=== PATIENT | male | born 1980 | race Caucasian/White ===

== ENCOUNTER 2024-10-27 13:31 | Emergency (ER) | payer MEDICARE, MEDICAID ==
[~2024-10-27] VITALS: Ht 188 cm; Wt 85.9 kg
[2024-10-27] MEDS ORDERED: SULF1TAB49 PO (14:23)
[2024-10-27] MEDS ORDERED: IBUP-862 PO (14:23)
--- NOTE | 2024-10-27 14:23 | Physician Documentation ---
History of Present Illness ~ Chief Complaint: Wound Stated Complaint: POSS MRSA Time Seen by MD: 14:21 HPI 44-year-old male with various ulcers and wounds to his lower extremities right hip left foot he is concerned for MRSA and infection no fevers chest pain or shortness of breath Medication Reconciliation Allergies: Coded Allergies: No Known Allergies (Unverified , 10/27/24) Scheduled Ibuprofen (Ibu), 1 TAB PO Q6H Sulfamethoxazole/Trimethoprim (Bactrim Ds Tablet), 1 TAB PO Q12H Past Medical History Past Medical History: No Pertinent History Review of Systems All Other Systems at this time: Reviewed and Negative Integumentary: Reports: see HPI Physical Exam Vital Signs: Heart Rate: 82, Respiratory Rate: 16, Pulse Oximetry: 93, Weight: 85.900 General Appearance: alert, WD/WN, no apparent distress Cardiovascular: normal peripheral pulses, regular rate, rhythm, no edema Respiratory: lungs clear, normal breath sounds, no respiratory distress Chest: no accessory muscle use, chest non-tender Skin Various scabbed lesions when lesion to left hip region with some surrounding erythema induration without fluctuance approximately 3 cm in diameter. Callus blister like lesion to the left foot. Progress Results/Orders Results/Orders Orders - BEE ZAVALA NP Wound Care Orders (10/27/24 14:23) Vital Signs 10/27/24 10/27/24 14:18 15:15 Temp 98.8 98.8 Pulse 82 75 Resp 16 16 B/P (MAP) 110/75 136/89 Pulse Ox 93 99 Medical Decision Making Findings Various picked lesions in various stages of healing as well as the callus blister to the bottom of his left foot. Cellulitis versus abscess Differential Dx:Considerations: Include: Abscess, Cellulitis, Dressing change Departure Time of Disposition: 14:22 Disposition: 01 HOME / SELF CARE / HOMELESS Impression: Primary Impression: Wound Additional Impression: Wound pain Condition: Stable Discharge Instructions: Skin Abscess, Abrasion Additional Instructions: Antibiotics until course is fully completed. Monitor for any new or worsening symptoms. Take ibuprofen as needed for pain. Follow-up with primary care or urgent care as needed Referrals: NO PRIMARY CARE PROVIDER (PCP) Prescriptions Ibuprofen (Ibu) 600 Mg Tablet 1 TAB PO Q6H for 7 Days, #28 TAB 0 Refills Prov: BEE ZAVALA NP 10/27/24 Sulfamethoxazole/Trimethoprim (Bactrim Ds Tablet) 800 Mg-160 Mg Tablet 1 TAB PO Q12H for 10 Days, #20 TAB Prov: BEE ZAVALA NP 10/27/24 Education Educated: Patient Educated regarding: diagnosis, treatment, need for follow up Signature Scribe Signature: No Scribe Attestation: The note accurately reflects work and decisions made by me.Bee Zavala - [employer] 10/27/24 16:52 BEE ZAVALA NP Oct 27, 2024 14:23
[2024-10-27 15:15] VITALS: BP 136/89; PULSE 75; RESP 16; TEMP 98.8; O2SAT 99
== END 2024-10-27 15:18 | disposition home or self-care (01) ==
LOC: ER 13:32
DX: L97.529 Non-pressure chronic ulcer of other part of left foot with unspecified severity (principal)
CPT/HCPCS: 99283

== ENCOUNTER 2024-12-10 09:21 | Emergency (ER) | payer MEDICARE, MEDICAID ==
[~2024-12-10] VITALS: Ht 188 cm; Wt 80.4 kg
[~2024-12-10 09:21] MED LIST: IBUP-862 PO
[2024-12-10 09:39] VITALS: BP 124/77; TEMP 99
--- NOTE | 2024-12-10 09:52 | Physician Documentation ---
History of Present Illness ~ General Chief Complaint: Multiple Medical Complaints Stated Complaint: POSS MULTIPLE INFECTIONS Time Seen by MD: 09:47 History of Present Illness Initial Comments 44-year-old male who admits to intravenous methamphetamine use. He presents to the emergency department due to concerns for a sore throat, an occasional cough productive of phlegm, and concerns for multiple different skin infections. He denies chills or fever. Medication Reconciliation Allergies: Coded Allergies: No Known Allergies (Unverified , 12/10/24) Scheduled Ibuprofen (Ibu), 1 TAB PO Q6H Sulfamethoxazole/Trimethoprim (Bactrim Ds Tablet), 1 TAB PO Q12H Past Medical History Past Medical History: No Pertinent History Review of Systems ROS As stated above in the HPI, otherwise all systems are reviewed and negative. Physical Exam Physical Exam Vital Signs: Temperature: 99.0, Source: Temporal, Heart Rate: 100, Respiratory Rate: 18, BP: 124/77, Pulse Oximetry: 95, Weight: 80.380 Oxygen Flow Rate: 0 Physical Exam General: Alert, no apparent distress. Neck: Full range of motion. Mouth/Throat: Edentulous. Mild posterior pharyngeal erythema. No exudate/tonsil enlargement Respiratory: Lungs clear, no respiratory distress. Chest: No accessory muscle use. Cardiovascular: Regular rate and rhythm, no murmurs. Gastrointestinal: Soft, nontender, nondistended. Bowels sounds present. Extremities: Normal range of motion, no deformity. Neurologic: Oriented x4. Psychiatric: Normal mood and affect. Skin: Normal color, warm and dry. No edema, no ecchymosis. Cellulitis surrounds a superficlal open area right medial forearm, ventral aspect. Approx 4 mm abscess area left antecubital space that does not feel fluctuant or amenable to drainage. Several scattered open areas also noted to other areas of arms. Calluses/cracks to feet. Progress Results/Orders Results/Orders Completed Orders - RONDA MERCEDES NP Ketorolac Trometh 30mg/Ml Vial (Toradol (12/10/24 10:10) Vital Signs 12/10/24 09:39 Temp 99.0 Pulse 100 Resp 18 B/P (MAP) 124/77 Pulse Ox 95 O2 Flow Rate 0 Medical Decision Making Differential Diagnosis 44-year-old male. IVDU hx. No signs of sepsis. He will be treated with Toradol injection for pain in the emergency department. He will be given Bactrim upon discharge, he will be given instructions to return if worse. His wounds will be treated prior to discharge. His tetanus will be updated if he is not UTD. Departure Time of Disposition: 10:11 Disposition: 01 HOME / SELF CARE / HOMELESS Impression: Primary Impression: Cellulitis Qualified Codes: L03.113 - Cellulitis of right upper limb Additional Impressions: Methamphetamine abuse Intravenous drug user Sore throat Condition: Stable Discharge Instructions: Cellulitis, Adult, How to Change Your Wound Dressing, Methamphetamines Use Disorder, Sore Throat Additional Instructions: Your wounds clean and dry, covered. Use the Bactroban sent to the pharmacy to dress your wounds, and then cover with Band-Aids. Take the prescribed antibiotic. Return if worse, otherwise follow up with your primary care provider. Referrals: NO PRIMARY CARE PROVIDER (PCP) Prescriptions Mupirocin* (Bactroban*) 22 Gm Tube 1 APPLIC TOP Q8H for 5 Days, #15 GM apply to affected area(s) Prov: RONDA MERCEDES NP 12/10/24 Sulfamethoxazole/Trimethoprim (Bactrim Ds Tablet) 800 Mg-160 Mg Tablet 1 TAB PO Q12H for 10 Days, #20 TAB Prov: RONDA MERCEDES NP 12/10/24 Education Educated: Patient Educated regarding: diagnosis, treatment, prognosis, need for follow up Signature Scribe Signature: x Attestation: The note accurately reflects work and decisions made by me.Ronda Pierre NP 12/10/24 10:16 RONDA MERCEDES NP Dec 10, 2024 09:52
[2024-12-10] MEDS ORDERED: SULF1TAB49 PO (10:13)
[2024-12-10] MEDS ORDERED: MUPI22OI30 TOP (10:18)
[2024-12-10] MEDS: ketorolac trometh 30MG/ML vial 30 MG/ML VIAL IM ONE (10:23)
[2024-12-10] MEDS: TETanus/Pertussis (Acell)/Diphther VAC/PF (Tdap-Adult) 0.5ml syringe IMVAC ONE (10:24)
[2024-12-10 10:49] VITALS: PULSE 76; RESP 18; O2SAT 99
== END 2024-12-10 10:54 | disposition home or self-care (01) ==
LOC: ER 09:22
DX: L03.113 Cellulitis of right upper limb (principal); F15.10 Other stimulant abuse, uncomplicated; J02.9 Acute pharyngitis, unspecified; Z79.899 Other long term (current) drug therapy
CPT/HCPCS: 90471; 90715; 96372; 99284; J1885

== ENCOUNTER 2024-12-31 09:30 | Emergency (ER) | payer MEDICARE, MEDICAID ==
[~2024-12-31] VITALS: Ht 188 cm; Wt 77.6 kg
[2024-12-31 09:46] VITALS: BP 121/76; PULSE 92; RESP 16; TEMP 98.1; O2SAT 100
[2024-12-31] MEDS: sulfamethoxazole/trimethoprim DS (800/160mg) tablet PO ONE (10:57)
--- NOTE | 2024-12-31 10:57 | Physician Documentation ---
History of Present Illness ~ Chief Complaint: Knee Pain Stated Complaint: KNEE PAIN Time Seen by MD: 10:01 OK to notify your PCP?: Yes Source: patient Mode of Arrival: POV Exam Limitations: no limitations HPI 44-year-old male presents with right knee pain, swelling, warmth and redness for the past couple of days. He has a history of MRSA with the last abscess to his right arm. he states he took about half of his antibiotics because the wound was looking better. He has not taken anything for pain control. He sees of the wound has opened up and drained a tiny amount twice but is currently crusted over. Tetanus witin 5 years: No Medication Reconciliation Allergies: Coded Allergies: No Known Allergies (Unverified , 12/10/24) Scheduled Ibuprofen (Ibu), 1 TAB PO Q6H Past Medical History Past Medical History: No Pertinent History Review of Systems All Other Systems at this time: Reviewed and Negative Physical Exam Vital Signs: RN Vital Signs have been reviewed: Yes, Temperature: 98.1, Source: Temporal, Heart Rate: 92, Respiratory Rate: 16, BP: 121/76, Pulse Oximetry: 100, Weight: 77.600 Oxygen Flow Rate: 0 Pulse Oximetry Reflects: adequate oxygenation Physical Exam General: Alert, no distress. HEENT: No injection, moist mucous membranes. Neck: Full range of motion. Respiratory: No respiratory distress, equal chest rise and fall. Chest: No accessory muscle use. Cardiovascular: Regular rate and rhythm. Gastrointestinal: Nondistended. Extremities: Normal range of motion, no deformity. Full range motion of right knee Neurologic: Oriented x4. Psychiatric: Normal mood and affect. Skin: 8 Cm by 8 cm circular area of redness, tenderness and warmth and induration to the medial aspect of right knee. There is no fluctuance in the tissue Progress Results/Orders Reviewed/noted all lab results: Yes Results/Orders Orders - BETTY LAUREN [employer] Cephalexin Capsule (Keflex Capsule) (12/31/24 10:50) Sulfamethox/Trimetho. Ds Tab (Septra Ds (12/31/24 10:50) Naproxen Tablet (Naprosyn Tablet) (12/31/24 10:50) Acetaminophen 325mg Tablet (Tylenol Tabl (12/31/24 10:50) Vital Signs 12/31/24 09:46 Temp 98.1 Pulse 92 Resp 16 B/P (MAP) 121/76 Pulse Ox 100 O2 Flow Rate 0 Medical Decision Making Additional info obtained from: old records Findings Physical exam shows area of cellulitis to right inner knee. I do not suspect any osteomyelitis as his vital signs are stable and has full range motion of candy t knee. He has tenderness to palpation of the skin but states it does not hurt into the bone. With his history of MRSA recently and not completing his antibiotic prescription I anticipate that this is also due to MRSA so I will treat as such. Not taken anything for the pain so I gave him some Tylenol and naproxen while here in the department. General Diff Dx:Considerations: Include: Fracture, Hematoma, Neurovascular injury, Sprain Ankle Diff Dx:Considerations: Include: Osteomyelitis Departure Disposition: HOME / SELF CARE / HOMELESS Impression: Primary Impression: Cellulitis Additional Impression: Hx MRSA infection Condition: Stable Additional Instructions: Please follow up with your primary care provider within the next 3 days to assess for worsening redness or infection. Please take all antibiotics as pres cribed and finish the course. Continues take Tylenol or ibuprofen for pain relief. Please return back here for any new or worsening symptoms. Referrals: NO PRIMARY CARE PROVIDER (PCP) Prescriptions Sulfamethoxazole/Trimethoprim (Septra Ds Tab) 800 Mg/160 Mg Tablet 1 TAB PO Q12H for 10 Days, #20 TAB Prov: BETTY LAUREN 12/31/24 Cephalexin*Monohydrate* (Keflex*) 500 Mg Capsule 1 CAP PO Q8H for 10 Days, #30 CAP Prov: BETTY LAUREN 12/31/24 Education Educated: Patient Educated regarding: diagnosis, treatment, prognosis, need for follow up Additional Comment Medical Screen Exam This patient recieved a medical screening examination. After reviewing the individual's medical complaints with presenting symptoms and performing an appropriate physical examination, it was determined that no immediate life- threatening emergency medical condition is present. This individual is also not a women having contractions. Signature Scribe Signature: . Attestation: Scribed for Betty Lauren by Betty Pierre NP . 12/31/24 10:57 Parts of this note were created using [employer] voice recognition software program. While efforts were made to correct any mistakes made by this voice recognition software program, nonsensical phrases may remain in this note. In addition, there may be errors and syntax, grammar, content and spelling. BETTY LAUREN [facility] Dec 31, 2024 10:57
[2024-12-31] MEDS ORDERED: CEPH-585 PO (10:59)
[2024-12-31] MEDS ORDERED: SULF1TAB45 PO (10:59)
== END 2024-12-31 11:08 | disposition home or self-care (01) ==
LOC: ER 09:31
DX: L03.115 Cellulitis of right lower limb (principal); Z86.14 Personal history of Methicillin resistant Staphylococcus aureus infection
CPT/HCPCS: 99284

== ENCOUNTER 2025-02-08 12:54 | Emergency (ER) | payer MEDICARE, MEDICAID ==
[~2025-02-08] VITALS: Ht 188 cm; Wt 74.5 kg
[2025-02-08 13:12] VITALS: BP 108/83; PULSE 91; RESP 14; TEMP 98.9; O2SAT 96
--- NOTE | 2025-02-08 14:17 | Physician Documentation ---
History of Present Illness ~ Chief Complaint: Bite-insect Stated Complaint: SPIDER BITE Time Seen by MD: 13:30 HPI This is a 44-year-old male who presents with an area of pain and swelling to posterior aspect of his forearm, patient reports it has been present for the past several days. Patient reports history of MRSA. Patient reports no fevers, chills, or other systemic symptoms. Patient reports no other acute symptoms or concerns. Tetanus within 5 years?: No Medication Reconciliation Allergies: Coded Allergies: No Known Allergies (Unverified , 02/08/25) Scheduled Ibuprofen (Ibu), 1 TAB PO Q6H Sulfamethoxazole/Trimethoprim (Bactrim Ds Tablet), 1 TAB PO Q12H Past Medical History Past Medical History: No Pertinent History Review of Systems ROS As stated above in the HPI, otherwise all systems are reviewed and negative. Physical Exam Vital Signs: Temperature: 98.9, Source: Temporal, Heart Rate: 91, Respiratory Rate: 14, BP: 108/83, Pulse Oximetry: 96, Weight: 74.500 Oxygen Flow Rate: 0 Physical Exam VITALS: Reviewed and as above. GENERAL: Alert, nontoxic appearing, no apparent distress. RESPIRATORY: No increased work of breathing, no respiratory distress, speaking in full clear sentences SKIN: Posterior aspect of right proximal forearm 3 cm area of induration with pustule at the center, no fluctuance Progress Results/Orders Results/Orders Vital Signs 02/08/25 13:12 Temp 98.9 Pulse 91 Resp 14 B/P (MAP) 108/83 Pulse Ox 96 O2 Flow Rate 0 Medical Decision Making Findings This 44-year-old male presented with a area of pain and swelling to the posterior aspect of right forearm, physical exam demonstrated small area of induration with a pustule at the center and no fluctuance to suggest abscess, it was reassuring patient reported fever, chills, other systemic symptoms and physical exam did not demonstrate evidence of deeper tissue infection this appears to be uncomplicated superficial skin infection patient's history of MRSA with a course of Bactrim. Patient is otherwise well-appearing reporting no other acute symptoms or concerns is hemodynamically stable and appropriate for outpatient follow up. Patient provided home care instructions, follow up instructions, and return to care precautions which he verbalized understanding of Differential Dx:Considerations: Include: Abrasion, Allergic reaction, Anaphylaxis, Cellulitis, Contusion, Fracture, Hematoma, Insect envenomation, Laceration, Neurovascular injury, Punture wound, Retained foreign body, Urticaria Departure Time of Disposition: 14:21 Disposition: 01 HOME / SELF CARE / HOMELESS Impression: Primary Impression: Cellulitis Qualified Codes: L03.113 - Cellulitis of right upper limb Condition: Improved Discharge Instructions: Cellulitis, Adult Additional Instructions: Use warm moist compresses on the area two to three times a day otherwise keep the area clean dry and covered. Please take antibiotics as prescribed. Use ibuprofen and or Tylenol as directed by [id number] packaging as needed for pain. Please follow up with your primary care provider or the [facility] in the next few days. Please return to the emergency department for any new or worsening concerning symptoms. Referrals: NO PRIMARY CARE PROVIDER (PCP) Prescriptions Sulfamethoxazole/Trimethoprim (Bactrim Ds Tablet) 800 Mg-160 Mg Tablet 1 TAB PO Q12H for 7 Days, #14 TAB Prov: JESSICA ANGUIANO 02/08/25 Education Educated: Patient Educated regarding: diagnosis, treatment, prognosis, need for follow up Signature Scribe Signature: No scribe Attestation: The note accurately reflects work and decisions made by me.SAILAJA Prince 02/09/25 10:49 JESSICA ANGUIANO Feb 08, 2025 14:17
[2025-02-08] MEDS ORDERED: SULF1TAB49 PO (14:22)
== END 2025-02-08 16:15 | disposition home or self-care (01) ==
LOC: ER 12:55
DX: L03.113 Cellulitis of right upper limb (principal); Z86.14 Personal history of Methicillin resistant Staphylococcus aureus infection; Z79.899 Other long term (current) drug therapy
CPT/HCPCS: 99283

== ENCOUNTER 2025-02-27 11:53 | Emergency (ER) | payer MEDICARE, MEDICAID ==
[~2025-02-27] VITALS: Ht 188 cm; Wt 73.2 kg
[2025-02-27 11:57] VITALS: BP 106/69; PULSE 100; RESP 16; TEMP 97.5; O2SAT 99
[2025-02-27] MEDS ORDERED: CefTRIAXone 1000mg IM Kit (w/lidocaine diluent) IM ONE (13:55)
[2025-02-27] MEDS ORDERED: SULF1TAB45 PO (13:57)
[2025-02-27] MEDS ORDERED: CEPH-585 PO (13:57)
--- NOTE | 2025-02-27 13:59 | Physician Documentation ---
History of Present Illness ~ Chief Complaint: Medical Clearance Stated Complaint: INFECTION ON ARM Time Seen by MD: 13:33 HPI 44-YEAR-OLD MALE PRESENTS TO THE ED REQUESTING MEDICAL CLEARANCE SECONDARY TO ONGOING METHAMPHETAMINE USE. ALSO STATES HE HAS A MINOR INFECTION IN HIS RIGHT ELBOW. DENIES ANY FEVERS OR NAUSEA OR VOMITING Tetanus within 5 years?: No Medication Reconciliation Allergies: Coded Allergies: No Known Allergies (Unverified , 02/27/25) Scheduled Cephalexin*Monohydrate* (Keflex*), 1 CAP PO QID Ibuprofen (Ibu), 1 TAB PO Q6H Sulfamethoxazole/Trimethoprim (Septra Ds Tab), 1 TAB PO Q12H Past Medical History Past Medical History: No Pertinent History Review of Systems All Other Systems at this time: Reviewed and Negative ROS As stated above in the HPI, otherwise all systems are reviewed and negative. Physical Exam Vital Signs: Temperature: 97.5, Heart Rate: 100, Respiratory Rate: 16, BP: 106/69, Pulse Oximetry: 99, Weight: 73.200 Oxygen Flow Rate: 0 Physical Exam General: Alert, no apparent distress. HEENT: PERRL, EOMI, no injection, moist mucous membranes. Neck: Full range of motion. Respiratory: Lungs clear, no respiratory distress. Chest: No accessory muscle use. Cardiovascular: Regular rate and rhythm, no murmurs. Gastrointestinal: Soft, nontender, nondistended. Bowels sounds present. Extremities: Normal range of motion, no deformity. Neurologic: Oriented x4. Psychiatric: Normal mood and affect. Skin: Normal color, warm and dry. No edema, no ecchymosis. Progress Results/Orders Results/Orders Completed Orders - ISH BOLTON LEADITE MAN Ceftriaxone Im Kit W/Lidocaine (Rocephin (02/27/25 13:55) Vital Signs 02/27/25 11:57 Temp 97.5 Pulse 100 Resp 16 B/P (MAP) 106/69 Pulse Ox 99 O2 Flow Rate 0 Medical Decision Making Additional information obtaine: N/A Findings TREATED FOR HIS CUTANEOUS INFECTION ALSO HE IS MEDICALLY CLEARED FOR EMPIRE RECOVERY OR NEW LIFE DISCOVERY Differential Dx:Considerations: Include: Intoxication-Alcohol, Intoxication- Other drug, Personality disorder, Substance abuse disorder, Acute delirium, Closed head injury, Cervical spine injury, Skull fracture, Fracture(s), Abrasion, Contusion, Foreign body, Hematoma, Laceration, Alcohol withdrawl syndrom, Encephalopathy, Hepatitis, Medically stable, Other Departure Disposition: HOME / SELF CARE / HOMELESS Impression: Primary Impression: General medical exam Additional Impressions: Intravenous drug user Methamphetamine abuse Condition: Stable Discharge Instructions: Animal Bite, Adult Additional Instructions: MEDICALLY CLEARED FOR NEW LIFE DISCOVERY OR EMPIRE RECOVERY Referrals: NO PRIMARY CARE PROVIDER (PCP) Prescriptions Cephalexin*Monohydrate* (Keflex*) 500 Mg Capsule 1 CAP PO QID, #40 CAP Prov: ISH BOLTON NP 02/27/25 Sulfamethoxazole/Trimethoprim (Septra Ds Tab) 800 Mg/160 Mg Tablet 1 TAB PO Q12H for 10 Days, #20 TAB Prov: ISH BOLTON NP 02/27/25 Education Educated: Patient Educated regarding: diagnosis Signature Scribe Signature: G Attestation: Scribed for Ish Bolton Snap Attacher by Ish Pierre NP . 02/27/25 13:58 ISH BOLTON NP Feb 27, 2025 13:59
== END 2025-02-27 14:22 | disposition home or self-care (01) ==
LOC: ER 11:53
DX: Z00.00 Encounter for general adult medical examination without abnormal findings (principal); F15.10 Other stimulant abuse, uncomplicated
CPT/HCPCS: 99283